=== PATIENT | female | born 1990 | race Caucasian/White ===

== ENCOUNTER 2018-01-13 05:58 | Day surgery (SDC) | payer OTHER ==
[2018-01-13] MEDS ORDERED: MIDAZOLAM 1 MG/ML 2 ML INJ ×2 (07:56)
[2018-01-13] MEDS ORDERED: FENTAnyl 50 MCG/ML VIAL (07:57)
== END 2018-01-13 10:47 | disposition home or self-care (01) ==
LOC: GIL 05:58
DX: K21.9 Gastro-esophageal reflux disease without esophagitis (principal); K44.9 Diaphragmatic hernia without obstruction or gangrene; K29.70 Gastritis, unspecified, without bleeding
CPT/HCPCS: 43239; 84703; 88305; 88312

== ENCOUNTER 2018-01-31 03:02 | Inpatient (IN) | payer OTHER ==
[2018-01-31] MEDS ORDERED: NACL 0.9% 3 ML SYG IV (04:30)
[2018-01-31] MEDS ORDERED: ONDANSETRON 4 MG INJ IV (04:30)
[2018-01-31] MEDS ORDERED: ACETAMINOPHEN 650 MG SUPP PR (04:30)
[2018-01-31] MEDS: SOD CHLORIDE 0.9% 1,000 ML IV ×2 (05:52→14:33)
[2018-01-31 06:27] LABS: ADD MAN DIFF? NO
[2018-01-31 06:30] LABS: WHITE BLOOD COUNT 8.6 10^3/ul (4.8-10.8)
[2018-01-31 06:30] LABS: BASOPHILS % 0.2 % (0.0-2.0); EOSINOPHILS # 0.1 10^3/ul (0.0-0.5); EOSINOPHILS % 1.2 % (0.0-7.0); HEMATOCRIT 37.4 % (37.0-47.0); HEMOGLOBIN 12.5 g/dl (12.0-16.0); LYMPHOCYTES # 2.9 10^3/ul (0.8-2.9); LYMPHOCYTES % 33.9 % (15.0-51.0); MEAN CORPUSCULAR HEMOGLOBIN 29.5 pg (29.0-33.0); MEAN CORPUSCULAR HGB CONC 33.4 g/dl (32.0-37.0); MEAN CORPUSCULAR VOLUME 88.2 fl (82.0-101.0); MEAN PLATELET VOLUME 11.5 fl (7.4-10.4); MONOCYTE # 0.8 10^3/ul (0.3-0.9); MONOCYTES % 9.3 % (0.0-11.0); NEUTROPHIL # 4.7 10^3/ul (1.6-7.5); NEUTROPHILS % 55.1 % (39.0-77.0); PLATELET COUNT 212 10^3/UL (140-415); RED BLOOD COUNT 4.24 10^6/ul (4.20-5.40); RED CELL DISTRIBUTION WIDTH 12.6 % (11.5-14.5)
[2018-01-31 06:54] LABS: ALANINE AMINOTRANSFERASE 28 IU/L (13-69); ALBUMIN 4.4 g/dl (3.3-4.9); ALBUMIN/GLOBULIN RATIO 1.83; ALKALINE PHOSPHATASE 69 IU/L (42-121); ANION GAP 13 (5-13); ASPARTATE AMINO TRANSFERASE 27 IU/L (15-46); BILIRUBIN,INDIRECT 0.5 mg/dl (0-1.1); BILIRUBIN,TOTAL 0.5 mg/dl (0.2-1.3); BLOOD UREA NITROGEN 16 mg/dl (7-20); CALCIUM 9.1 mg/dl (8.4-10.2); CARBON DIOXIDE 23 mmol/L (21-31); CHLORIDE 104 mmol/L (97-110); CREATININE 0.41 mg/dl (0.44-1.00); Estimated GFR > 60 mL/min (>60); GLUCOSE 78 mg/dl (70-220); POTASSIUM 3.7 mmol/L (3.5-5.1); SODIUM 140 mmol/L (135-144); TOTAL PROTEIN 6.8 g/dl (6.1-8.1)
[2018-01-31] MEDS ORDERED: HEPARIN 5,000 UNIT/0.5 ML VIAL ×2 (08:44→21:43)
[2018-01-31] MEDS: HEPARIN 5,000 UNIT/1 ML VIAL SC ×2 (08:49→21:51)
[2018-01-31 12:15] LABS: ADD UMIC YES; UR ASCORBIC ACID NEGATIVE (NEGATIVE); UR BACTERIA FEW /HPF (NONE SEEN); UR BILIRUBIN (Dip) NEGATIVE (NEGATIVE); UR BLOOD (Dip) 1+ mg/dL (NEGATIVE); UR CLARITY SLIGHTLY CLOUDY (CLEAR); UR COLOR YELLOW (YELLOW); UR GLUCOSE (Dip) NEGATIVE (NEGATIVE); UR KETONES (Dip) 2+ mg/dL (NEGATIVE); UR LEUKOCYTE ESTERASE (Dip) 1+ Leu/ul (NEGATIVE); UR MUCUS FEW /HPF (NONE SEEN); UR NITRITE (Dip) NEGATIVE (NEGATIVE); UR RBC 9 /HPF (0-5); UR SPECIFIC GRAVITY (Dip) 1.038 (1.003-1.030); UR TOTAL PROTEIN (Dip) 1+ mg/dl (NEGATIVE); UR UROBILINOGEN (Dip) NEGATIVE (NEGATIVE); UR WBC 42 /HPF (0-5)
[2018-01-31 12:45] LABS: UR NONSQUAMOUS EPITHELIAL CELL 1 /HPF (NONE SEEN)
[2018-01-31] MEDS: MEROPENEM 1 GM/50ML(PMX) 50 ML IVPB ×2 (13:42→21:51)
[2018-02-01] MEDS: SOD CHLORIDE 0.9% 1,000 ML IV ×3 (01:54→15:12)
[2018-02-01] MEDS: MEROPENEM 1 GM/50ML(PMX) 50 ML IVPB ×3 (05:56→21:42)
[2018-02-01 05:59] LABS: ADD MAN DIFF? NO
[2018-02-01 06:17] LABS: BASOPHILS % 0.5 % (0.0-2.0); EOSINOPHILS % 0.6 % (0.0-7.0); HEMATOCRIT 34.4 % (37.0-47.0); HEMOGLOBIN 11.3 g/dl (12.0-16.0); LYMPHOCYTES # 2.7 10^3/ul (0.8-2.9); LYMPHOCYTES % 43.2 % (15.0-51.0); MEAN CORPUSCULAR HEMOGLOBIN 29.3 pg (29.0-33.0); MEAN CORPUSCULAR HGB CONC 32.8 g/dl (32.0-37.0); MEAN CORPUSCULAR VOLUME 89.1 fl (82.0-101.0); MEAN PLATELET VOLUME 11.4 fl (7.4-10.4); MONOCYTE # 0.6 10^3/ul (0.3-0.9); MONOCYTES % 9.5 % (0.0-11.0); NEUTROPHIL # 2.9 10^3/ul (1.6-7.5); NEUTROPHILS % 45.9 % (39.0-77.0); PLATELET COUNT 216 10^3/UL (140-415); RED BLOOD COUNT 3.86 10^6/ul (4.20-5.40); RED CELL DISTRIBUTION WIDTH 12.8 % (11.5-14.5)
[2018-02-01 06:17] LABS: WHITE BLOOD COUNT 6.3 10^3/ul (4.8-10.8)
[2018-02-01 07:06] LABS: ALANINE AMINOTRANSFERASE 35 IU/L (13-69); ALBUMIN 3.4 g/dl (3.3-4.9); ALBUMIN/GLOBULIN RATIO 1.36; ALKALINE PHOSPHATASE 66 IU/L (42-121); ANION GAP 8 (5-13); ASPARTATE AMINO TRANSFERASE 19 IU/L (15-46); BILIRUBIN,INDIRECT 0.4 mg/dl (0-1.1); BILIRUBIN,TOTAL 0.4 mg/dl (0.2-1.3); BLOOD UREA NITROGEN 5 mg/dl (7-20); CALCIUM 8.2 mg/dl (8.4-10.2); CARBON DIOXIDE 17 mmol/L (21-31); CHLORIDE 114 mmol/L (97-110); CHOL/HDL RATIO 2.6 RATIO; CHOLESTEROL 109 mg/dl (100-200); CREATININE 0.37 mg/dl (0.44-1.00); Estimated GFR > 60 mL/min (>60); GLUCOSE 66 mg/dl (70-220); HDL CHOLESTEROL 41 mg/dl (33-83); LDL CHOLESTEROL,CALCULATED 50 mg/dl; MAGNESIUM 2.1 mg/dl (1.7-2.5); POTASSIUM 4.3 mmol/L (3.5-5.1); SODIUM 139 mmol/L (135-144); TOTAL PROTEIN 5.9 g/dl (6.1-8.1); TRIGLYCERIDES 91 mg/dl (0-149)
[2018-02-01 07:42] LABS: THYROID STIMULATING HORMONE 0.806 MIU/L (0.465-4.680)
[2018-02-01] MEDS ORDERED: IOHEXOL 300MG/ML 150 ML BTL (08:57)
[2018-02-01] MEDS: INFLUENZA VIRUS VACCINE 0.5 ML (DISPENSING) IM* (10:29)
[2018-02-01] MEDS ORDERED: HEPARIN 5,000 UNIT/0.5 ML VIAL ×2 (10:31→20:08)
[2018-02-01] MEDS: HEPARIN 5,000 UNIT/1 ML VIAL SC ×2 (10:34→21:45)
[2018-02-02] MEDS: MEROPENEM 1 GM/50ML(PMX) 50 ML IVPB (06:00)
[2018-02-02] MEDS: SOD CHLORIDE 0.9% 1,000 ML IV (06:23)
[2018-02-02] MEDS ORDERED: HEPARIN 5,000 UNIT/0.5 ML VIAL (08:09)
[2018-02-02] MEDS: HEPARIN 5,000 UNIT/1 ML VIAL SC (08:24)
== END 2018-02-02 13:45 | disposition home or self-care (01) | DRG 389 ==
LOC: PP2 03:02
DX: K56.609 Unspecified intestinal obstruction, unspecified as to partial versus complete obstruction (principal); N39.0 Urinary tract infection, site not specified; G82.20 Paraplegia, unspecified; Q05.9 Spina bifida, unspecified; N31.9 Neuromuscular dysfunction of bladder, unspecified; M24.452 Recurrent dislocation, left hip; M24.451 Recurrent dislocation, right hip; Z99.3 Dependence on wheelchair; N21.0 Calculus in bladder; Q65.89 Other specified congenital deformities of hip
CPT/HCPCS: 74018; 74250; 80053; 80061; 81001; 83036; 83735; 84443; 85025; 87081; 87086; 90686

== ENCOUNTER 2018-03-05 14:03 | Emergency (ER) | payer OTHER ==
[2018-03-05 17:42] LABS: ADD UMIC YES; UR ASCORBIC ACID NEGATIVE (NEGATIVE); UR BACTERIA MANY /HPF (NONE SEEN); UR BILIRUBIN (Dip) NEGATIVE (NEGATIVE); UR BLOOD (Dip) 2+ mg/dL (NEGATIVE); UR CLARITY CLOUDY (CLEAR); UR COLOR YELLOW (YELLOW); UR GLUCOSE (Dip) NEGATIVE (NEGATIVE); UR KETONES (Dip) NEGATIVE (NEGATIVE); UR LEUKOCYTE ESTERASE (Dip) 2+ Leu/ul (NEGATIVE); UR MUCUS FEW /HPF (NONE SEEN); UR NITRITE (Dip) POSITIVE (NEGATIVE); UR NONSQUAMOUS EPITHELIAL CELL 5 /HPF (NONE SEEN); UR RBC 81 /HPF (0-5); UR SPECIFIC GRAVITY (Dip) 1.016 (1.003-1.030); UR SQUAMOUS EPITHELIAL CELL FEW /HPF (FEW); UR TOTAL PROTEIN (Dip) 2+ mg/dl (NEGATIVE); UR UROBILINOGEN (Dip) NEGATIVE (NEGATIVE); UR WBC > 182 /HPF (0-5)
[2018-03-05 18:04] LABS: ADD MAN DIFF? NO
[2018-03-05 18:06] LABS: BASOPHILS % 0.4 % (0.0-2.0); EOSINOPHILS # 0.1 10^3/ul (0.0-0.5); EOSINOPHILS % 0.6 % (0.0-7.0); LYMPHOCYTES # 3.2 10^3/ul (0.8-2.9); MEAN CORPUSCULAR HEMOGLOBIN 29.2 pg (29.0-33.0); MEAN CORPUSCULAR HGB CONC 33.3 g/dl (32.0-37.0); MEAN CORPUSCULAR VOLUME 87.6 fl (82.0-101.0); MEAN PLATELET VOLUME 11.7 fl (7.4-10.4); MONOCYTE # 0.8 10^3/ul (0.3-0.9); NEUTROPHIL # 5.4 10^3/ul (1.6-7.5); NEUTROPHILS % 56.8 % (39.0-77.0); PLATELET COUNT 218 10^3/UL (140-415); RED BLOOD COUNT 4.45 10^6/ul (4.20-5.40); RED CELL DISTRIBUTION WIDTH 12.7 % (11.5-14.5)
[2018-03-05 18:06] LABS: WHITE BLOOD COUNT 9.5 10^3/ul (4.8-10.8)
[2018-03-05 18:25] LABS: LIPASE 113 U/L (23-300)
[2018-03-05] MEDS: CEFTRIAXONE 1 GM INJ IM (18:36)
[2018-03-05] MEDS: LIDOCAINE 1% (MDV) 20 ML INJ SC (18:36)
== END 2018-03-05 19:13 | disposition home or self-care (01) ==
LOC: FTE 14:03
DX: N39.0 Urinary tract infection, site not specified (principal); Z91.040 Latex allergy status
CPT/HCPCS: 81001; 83690; 85025; 87086; 96372; 99284-25

== ENCOUNTER → 2018-11-09 | Outpatient (CLI) | payer OTHER ==
[~2018-11-09] MED LIST: BARIUM SULFATE 135 ML (E-Z HD) PO; SIMETH/SOD BICARB/CIT AC PKT (E-Z- GAS II) PO
== END | disposition home or self-care (01) ==
LOC: RAD 09:51
DX: R10.10 Upper abdominal pain, unspecified (principal)
CPT/HCPCS: 74240